=== PATIENT | female | born 2000 | race Caucasian/White ===

== ENCOUNTER 2023-12-20 07:18 | Emergency (ER) | payer BC ==
[~2023-12-20] VITALS: Ht 165.1 cm; Wt 72.7 kg
[2023-12-20 07:24] VITALS: BP 123/87
[2023-12-20] MEDS ORDERED: NORCO 325 MG-51 TAB PO ×2 (08:07→09:28)
[2023-12-20] MEDS ORDERED: CRUTCHES MC ×2 (08:15→09:28)
[2023-12-20 08:43] VITALS: PULSE 98; TEMP 97.9
== END 2023-12-20 08:43 | disposition home or self-care (01) ==
LOC: COL.ER 07:18
DX: S82.62XA Displaced fracture of lateral malleolus of left fibula, initial encounter for closed fracture (principal); Z88.6 Allergy status to analgesic agent; V00.131A Fall from skateboard, initial encounter; X50.1XXA Overexertion from prolonged static or awkward postures, initial encounter; Y93.21 Activity, ice skating; Y92.330 Ice skating rink (indoor) (outdoor) as the place of occurrence of the external cause